=== PATIENT | female | born 2000 ===

== ENCOUNTER → 2023-07-03 | Outpatient (CLI) | payer OTHER | END | disposition home or self-care (01) | LOC: LAB 15:41 → LAB SHORT 15:41 | DX: Z34.83 Encounter for supervision of other normal pregnancy, third trimester (principal) | CPT/HCPCS: 87081; 87150 ==

== ENCOUNTER 2023-12-08 17:42 | Emergency (ER) | payer OTHER ==
[~2023-12-08] VITALS: Ht 165.1 cm; Wt 81.7 kg
[2023-12-08 18:04] VITALS: BP 127/84
[2023-12-08] MEDS ORDERED: CEPH500 PO (19:12)
[2023-12-08] MEDS ORDERED: Bactrim Ds Tab1 EACH PO (19:12)
[2023-12-08] MEDS ORDERED: Cephalexin Monohydrate 500 MG Cap PO ONE (19:15)
[2023-12-08] MEDS ORDERED: Trimethoprim/Sulfamethoxazole DS Tab PO ONE (19:15)
== END 2023-12-08 19:50 | disposition home or self-care (01) ==
LOC: ER 17:42
DX: L02.511 Cutaneous abscess of right hand (principal)
CPT/HCPCS: 81025; A9270

== ENCOUNTER → 2024-09-22 | Outpatient (CLI) | payer OTHER ==
[~2024-09-22] MED LIST: Bactrim Ds Tab1 EACH PO; CEPH500 PO
== END ==
LOC: LAB 18:32 → LAB SHORT 18:32
DX: O09.90 Supervision of high risk pregnancy, unspecified, unspecified trimester (principal)
CPT/HCPCS: 87081; 87150

== ENCOUNTER 2024-10-19 04:29 | Inpatient (IN) | payer OTHER ==
[2024-10-19] VITALS (70 sets, daily range): BP systolic 71–124; BP diastolic 48–84
[~2024-10-19] VITALS: Ht 165.1 cm; Wt 93.2 kg
[2024-10-19] MEDS ORDERED: Misoprostol 200 MCG Tab PR PRN ×2 (06:30→13:15)
[2024-10-19] MEDS ORDERED: Carboprost Tromethamine 250 MCG/ML 1ML Amp IM PRN ×2 (06:30→13:10)
[2024-10-19] MEDS ORDERED: Acetaminophen 500 MG Tab PO PRN ×2 (06:30→13:10)
[2024-10-19] MEDS ORDERED: Lactated Ringer's 1,000 ML IV PRN (06:30)
[2024-10-19] MEDS ORDERED: Lactated Ringer's 1,000 ML IV SCH ×4 (06:30→13:25)
[2024-10-19] MEDS ORDERED: OXYTOCIN/RINGER'S LACTATE 500 ML IV PRN (06:30)
[2024-10-19] MEDS ORDERED: Misoprostol 200 MCG Tab BC PRN (06:30)
[2024-10-19] MEDS ORDERED: Tranexamic Acid 100 ML IV SCH (06:30)
[2024-10-19] MEDS ORDERED: Penicillin G Potassium 5,000,000 UNITS in NS 250 ML IV ONE (06:30)
[2024-10-19] MEDS ORDERED: Ondansetron HCl 2 MG / ML 2ML Vial IV PRN ×4 (06:30→13:15)
[2024-10-19] MEDS ORDERED: FentaNYL 2mcg/ml-Bup 0.1% Epd 250 ML EPI PRN (06:30)
[2024-10-19] MEDS ORDERED: Methylergonovine Maleate 0.2MG / ML 1ML Amp IM PRN ×2 (06:30→13:20)
[2024-10-19] MEDS ORDERED: Oxytocin 10 Unit / ML Vial IM PRN (06:30)
[2024-10-19] MEDS ORDERED: FentaNYL Citrate 50 MCG/ML 2 ML Injection IV PRN ×2 (06:30→12:10)
[2024-10-19] MEDS ORDERED: ePHEDrine Sulfate 50 MG/ML 1ML Injection XX PRN (06:30)
[2024-10-19] MEDS ORDERED: Calcium Carbonate 500 MG Tab Chew PO PRN (06:35)
[2024-10-19] MEDS ORDERED: FentaNYL Citrate 50 MCG/ML 2 ML Injection ONE ×2 (06:42→12:24)
[2024-10-19 06:53] LABS: BASOPHILS ABSOLUTE AUTO 0.03 K/mm3 (0.00-0.23); BASOPHILS PERCENT AUTO 0 % (0-2); EOSINOPHILS ABSOLUTE AUTO 0.07 K/mm3 (0.00-0.68); EOSINOPHILS PERCENT AUTO 1 % (0-6); Hematocrit 33.4 % (33.0-51.0); Hemoglobin 10.6 g/dL (11.5-16.0); IMMATURE GRAN ABSOLUTE AUTO 0.12 K/mm3 (0.00-0.10); IMMATURE GRAN PERCENT AUTO 1 % (0-1); LYMPHOCYTES ABSOLUTE AUTO 1.93 K/mm3 (0.84-5.20); LYMPHOCYTES PERCENT AUTO 17 % (21-46); MONOCYTES ABSOLUTE AUTO 0.69 K/mm3 (0.16-1.47); MONOCYTES PERCENT AUTO 6 % (4-13); Mean Corpuscular HGB Conc 31.7 g/dL (31.5-36.5); Mean Corpuscular Volume 76 fL (80-100); Mean Platelet Volume 10.8 fL (9.1-12.4); NEUTROPHILS ABSOLUTE AUTO 8.84 K/mm3 (1.96-9.15); NEUTROPHILS PERCENT AUTO 76 % (41-73); Platelet Count 231 K/mm3 (150-400); RDW Coefficient Variation 14.6 % (11.7-14.2); RDW Standard Deviation 39.7 fL (35.1-46.3); Red Blood Cell Count 4.41 M/mm3 (3.80-5.20); White Blood Cell Count 11.68 K/mm3 (4.00-11.30)
[2024-10-19] MEDS ORDERED: Metoclopramide HCl 5MG / ML 2ML Vial IV PRN (07:20)
[2024-10-19] MEDS ORDERED: DiphenhydrAMINE HCl 50 MG/ML 1ML Vial IV PRN (07:20)
[2024-10-19] MEDS ORDERED: Penicillin G Potassium 2,500,000 UNITS in Dextrose 5% 100 ML IV SCH (10:30)
[2024-10-19] MEDS ORDERED: NS 1,000 ML IV SCH (11:00)
[2024-10-19] MEDS ORDERED: NS 1,000 ML IV ONE (11:28)
[2024-10-19] MEDS ORDERED: Metoclopramide HCl 5MG / ML 2ML Vial IV ONE ×2 (11:40→11:45)
[2024-10-19] MEDS ORDERED: CeFAZolin Sodium 2,000 MG in NS 100 ML IV SCH ×2 (11:40→11:45)
[2024-10-19] MEDS ORDERED: Citric Acid/Sodium Citrate 30 ML BTL PO ONE ×2 (11:40→11:45)
[2024-10-19] MEDS ORDERED: Azithromycin 500 MG in NS 250 ML IV SCH (11:45)
[2024-10-19] MEDS ORDERED: Oxytocin 10 Unit / ML Vial ONE (11:54)
[2024-10-19] MEDS ORDERED: Lidocaine HCl 2% 10 ML SDA ONE ×2 (11:54→11:55)
[2024-10-19] MEDS ORDERED: Dexamethasone Sod Phos 10 MG/ML 1ML VIAL ONE (11:58)
[2024-10-19] MEDS ORDERED: Ondansetron HCl 2 MG / ML 2ML Vial ONE (11:58)
[2024-10-19] MEDS ORDERED: Labetalol HCL 5 MG/ML 4ML Injection (Single Dose) IV PRN (12:10)
[2024-10-19] MEDS ORDERED: HYDROmorphone HCl/Pf 1MG SYR IV PRN (12:10)
[2024-10-19] MEDS ORDERED: Bupivacaine 0.5% HCl 5 MG/ML 30MLVIAL ONE ×2 (12:16→12:17)
[2024-10-19] MEDS ORDERED: Midazolam HCl 1MG / ML 2ML Vial ONE (12:24)
[2024-10-19 12:48] LABS: PCO2 Cord - Arterial 61.8 mmHg (40-50); PO2 Cord - Arterial < 14.0 mmHg (16-20); pH Cord - Arterial 7.28 (7.28-7.35)
[2024-10-19 12:49] LABS: PCO2 Cord - Venous 42.6 mmHg (40-50); pH Umbilical Cord - Venous 7.39 (7.26-7.35)
[2024-10-19] MEDS ORDERED: Ketorolac Tromethamine 30mg Vial ONE (12:53)
[2024-10-19] MEDS ORDERED: DiphenhydrAMINE HCL 25 MG Cap PO PRN (13:10)
[2024-10-19] MEDS ORDERED: OXYTOCIN/RINGER'S LACTATE 500 ML IV SCH ×2 (13:10→13:15)
[2024-10-19] MEDS ORDERED: OxyCODONE HCL 5 MG TAB PO PRN (13:10)
[2024-10-19] MEDS ORDERED: Lanolin Cream TOP PRN (13:15)
[2024-10-19] MEDS ORDERED: Morphine Sulfate 4 MG/1 ML Injection IV PRN (13:15)
[2024-10-19] MEDS ORDERED: Promethazine HCl 25 MG Tab PO PRN (13:15)
[2024-10-19] MEDS ORDERED: Magnesium Hydroxide Conc 10 ML UDC PO PRN (13:20)
[2024-10-19] MEDS ORDERED: Measles/Mumps/Rubella Vaccine 0.5 ML Vial SC ONE (13:20)
[2024-10-19] MEDS ORDERED: Metoclopramide HCl 10 MG Tab PO PRN (13:20)
[2024-10-19] MEDS ORDERED: Simethicone 80 MG Chew PO PRN (13:25)
[2024-10-19] MEDS ORDERED: Rho(D) Immune Globulin 300 MCG / SYR IM ONE ×2 (13:25→16:40)
--- NOTE | 2024-10-19 13:58 | NUR ---
pt to 130, on way from ob pacu to 130, pt got very nausea'd and white afte 1 minute in room less white and feeling better, less nausea
[2024-10-19] MEDS ORDERED: Ketorolac Tromethamine 30mg Vial IV SCH (14:00)
--- NOTE | 2024-10-19 14:09 | NUR ---
PT BP LOW ONCE INTO ROOM 130 FROM PACU. PT LIPS PALE AND SHE WAS FEELING NAUSEATED. LR BOLUS STARTED. BLEEDING WNL. PT GIVEN POPSICLE AND STARTING TO FEEL BETTER AT THIS TIME.
--- NOTE | 2024-10-19 14:45 | NUR ---
10/19/24 1445 SEGUNDO MEI VIABLE MALE BORN AT 1224. CORD GASES SENT WITH RT HUGH.
[2024-10-19] MEDS ORDERED: ePHEDrine Sulfate 50 MG/ML 1ML Injection IV PRN (14:50)
--- NOTE | 2024-10-19 14:54 | NUR ---
@ 1445, PT METAPHORE WAS SATURATED, RN USTILIZED PRESSURE DRESSING. HARRIETT MARTELL UPDATED ON DRESSING STATUS AND NEED TO PRESSUIZE IT. ORDER TO CONINUTE TO MONITOR @ PT JOSHUA KRISHNAN, HARRIETT MARTELL UPDATED, ORDERS FOR EPHEDRINE, SEE EMAR.
--- NOTE | 2024-10-19 15:22 | NUR ---
REPORT TO MARYJANE KWON FOR LUNCH BREAK WHILE PT WAS IN PACU. PT OUT OF PACU TO ROOM TAKEN BY MARYJANE KWON. REASSUMED CARE OF PT ONCE SHE ARRIVED IN ROOM. AT APPROX 1355.
[2024-10-19] MEDS ORDERED: Ibuprofen 400 MG Tab PO SCH (16:00)
[2024-10-19] MEDS ORDERED: Ibuprofen 400 MG Tab PO PRN (17:38)
[2024-10-19] MEDS ORDERED: Ketorolac Tromethamine 30mg Vial IV PRN (17:38)
[2024-10-19 18:26] LABS: BASOPHILS ABSOLUTE AUTO 0.02 K/mm3 (0.00-0.23); BASOPHILS PERCENT AUTO 0 % (0-2); EOSINOPHILS PERCENT AUTO 0 % (0-6); Hematocrit 28.5 % (33.0-51.0); Hemoglobin 8.9 g/dL (11.5-16.0); IMMATURE GRAN PERCENT AUTO 1 % (0-1); LYMPHOCYTES ABSOLUTE AUTO 0.56 K/mm3 (0.84-5.20); LYMPHOCYTES PERCENT AUTO 3 % (21-46); MONOCYTES ABSOLUTE AUTO 0.43 K/mm3 (0.16-1.47); MONOCYTES PERCENT AUTO 3 % (4-13); Mean Corpuscular HGB 24.1 pg (26.0-34.0); Mean Corpuscular HGB Conc 31.2 g/dL (31.5-36.5); Mean Corpuscular Volume 77 fL (80-100); Mean Platelet Volume 10.4 fL (9.1-12.4); NEUTROPHILS ABSOLUTE AUTO 15.43 K/mm3 (1.96-9.15); NEUTROPHILS PERCENT AUTO 93 % (41-73); Platelet Count 211 K/mm3 (150-400); RDW Coefficient Variation 14.6 % (11.7-14.2); RDW Standard Deviation 40.4 fL (35.1-46.3); White Blood Cell Count 16.54 K/mm3 (4.00-11.30)
[2024-10-19 18:48] LABS: International Normalized Ratio 0.92; Prothrombin Time Results 9.9 Sec (9.7-11.5)
[2024-10-19] MEDS ORDERED: Docusate Sodium 100 MG Cap PO SCH (21:00)
--- NOTE | 2024-10-19 23:03 | NUR ---
DRESSING REMOVED AFTER SHOWERING. WELL APPROXIMATED. WOUND CARE EDUCATION GIVEN. PT VERBILIZED UNDERSTANDING
[2024-10-20 05:14] VITALS: BP 102/55
[2024-10-20 06:53] LABS: BASOPHILS ABSOLUTE AUTO 0.02 K/mm3 (0.00-0.23); BASOPHILS PERCENT AUTO 0 % (0-2); EOSINOPHILS ABSOLUTE AUTO 0.02 K/mm3 (0.00-0.68); EOSINOPHILS PERCENT AUTO 0 % (0-6); Hematocrit 24.3 % (33.0-51.0); Hemoglobin 7.6 g/dL (11.5-16.0); IMMATURE GRAN PERCENT AUTO 1 % (0-1); LYMPHOCYTES ABSOLUTE AUTO 2.12 K/mm3 (0.84-5.20); LYMPHOCYTES PERCENT AUTO 14 % (21-46); MONOCYTES ABSOLUTE AUTO 1.21 K/mm3 (0.16-1.47); MONOCYTES PERCENT AUTO 8 % (4-13); Mean Corpuscular HGB 24.3 pg (26.0-34.0); Mean Corpuscular HGB Conc 31.3 g/dL (31.5-36.5); Mean Corpuscular Volume 78 fL (80-100); Mean Platelet Volume 10.5 fL (9.1-12.4); NEUTROPHILS ABSOLUTE AUTO 11.74 K/mm3 (1.96-9.15); NEUTROPHILS PERCENT AUTO 77 % (41-73); Platelet Count 207 K/mm3 (150-400); RDW Coefficient Variation 14.6 % (11.7-14.2); RDW Standard Deviation 40.9 fL (35.1-46.3); Red Blood Cell Count 3.13 M/mm3 (3.80-5.20); White Blood Cell Count 15.21 K/mm3 (4.00-11.30)
[2024-10-20 08:25] VITALS: BP 92/45
[2024-10-20] MEDS ORDERED: Sod Ferric Gluc Complx/Sucrose 125 MG in NS 100 ML IV SCH (09:00)
[2024-10-20] MEDS ORDERED: Prenatal Vit/FE Fumarate/FA 1 Tab PO SCH (09:00)
[2024-10-20 12:02] VITALS: BP 96/55
[2024-10-20] MEDS ORDERED: FentaNYL Citrate 50 MCG/ML 2 ML Injection IV PRN (13:45)
[2024-10-20 16:03] VITALS: BP 108/68
--- NOTE | 2024-10-20 18:41 | NUR ---
RN INTO ROOM. PT TEARFUL ON PHONE WITH FOB. RN ASKED IF PT'S PAIN WAS BETTER TO WHICH SHE SAID IT WAS ABOUT THE SAME. RN OFFERED KPAD, PT AGREED. WHEN RN BACK INTO ROOM TO SET UP KPAD, PT CONTINUED TO BE TEARFUL. WHEN ASKED WHAT WAS UPSETTING PT, SHE EXPLAINED THAT "I JUST WANT TO GO HOME, I DIDN'T WANT ANY OF THIS." RN OFFERED SUPPORT WITH WATCHING NB FOR PT TO NAP; PT DECLINED. RN SUGGESTED PT ASK A FRIEND, FAMILY MEMBER, OR FOB TO HOLD BABY WHILE SHE SLEPT. RN ALSO EXPLAINED THAT [facility] USUALLY STAY IN HOSPITAL X48 HOURS, BUT IF SHE THOUGHT SHE COULD MANAGE HER PAIN AT HOME, PROVIDER MAY OKAY HER GOING HOME TONIGHT. RN ALSO MENTIONED THAT THERE ARE PROS AND CONS BOTH WITH STAYING OR GOING, AND THAT IF SHE STAYED WE COULD OFFER ADDITIONAL SUPPORT TO PROVIDE REST. PT STATES SHE IS NOT SURE WHAT SHE WANTS AT THIS TIME. RN ASKED PT IF SHE WOULD LIKE TO BE LEFT ALONE TO TALK ON PHONE OR IF SHE WOULD LIKE RN TO STAY FOR SUPPORT, SHE STATED THAT SHE WAS FINE TO BE ALONE.
[2024-10-20 19:56] VITALS: BP 83/47; BP 88/42
[2024-10-20 22:04] VITALS: BP 94/56
[2024-10-21 00:03] VITALS: BP 95/58
[2024-10-21 03:02] VITALS: BP 94/55
[2024-10-21 08:00] VITALS: BP 102/58
[2024-10-21 12:10] VITALS: BP 102/56
[2024-10-21 16:41] LABS: FETAL HGB - PERCENT FETAL RBCS 0.001 % (0.000-0.124)
== END 2024-10-21 12:35 | disposition home or self-care (01) | DRG 783 ==
LOC: BC 04:29 → OBS 04:29 → BC 04:30 → OBS 06:31 → BC 06:33
PROVIDERS: Family Medicine; Obstetrics & Gynecology; ADMIT Advanced Practice Midwife
PROC: 4A1H7CZ Monitoring of Products of Conception, Cardiac Rate, Via Natural or Artificial Opening (ICD-10-PCS; 2024-10-19)
PROC: 10H073Z Insertion of Monitoring Electrode into Products of Conception, Via Natural or Artificial Opening (ICD-10-PCS; 2024-10-19)
PROC: 10907ZC Drainage of Amniotic Fluid, Therapeutic from Products of Conception, Via Natural or Artificial Opening (ICD-10-PCS; 2024-10-19)
PROC: 10D00Z1 Extraction of Products of Conception, Low, Open Approach (ICD-10-PCS; principal; 2024-10-19 16:30)
PROC: 0UB70ZZ Excision of Bilateral Fallopian Tubes, Open Approach (ICD-10-PCS; 2024-10-19 16:30)
DX: O48.0 Post-term pregnancy (principal); O99.42 Diseases of the circulatory system complicating childbirth; F31.81 Bipolar II disorder; O99.324 Drug use complicating childbirth; D62 Acute posthemorrhagic anemia; I95.2 Hypotension due to drugs; Z37.0 Single live birth; Z3A.40 40 weeks gestation of pregnancy; O77.0 Labor and delivery complicated by meconium in amniotic fluid; O76 Abnormality in fetal heart rate and rhythm complicating labor and delivery; O90.81 Anemia of the puerperium; R01.1 Cardiac murmur, unspecified; O69.81X0 Labor and delivery complicated by cord around neck, without compression, not applicable or unspecified; O99.344 Other mental disorders complicating childbirth; F41.9 Anxiety disorder, unspecified; O99.284 Endocrine, nutritional and metabolic diseases complicating childbirth; E05.90 Thyrotoxicosis, unspecified without thyrotoxic crisis or storm; O99.824 Streptococcus B carrier state complicating childbirth; O99.334 Smoking (tobacco) complicating childbirth; F17.290 Nicotine dependence, other tobacco product, uncomplicated; F12.90 Cannabis use, unspecified, uncomplicated; Z71.6 Tobacco abuse counseling; Z71.51 Drug abuse counseling and surveillance of drug abuser
CPT/HCPCS: 36415; 51702; 59025; 59070; 81003; 82803; 85025; 85384; 85460; 85610; 85730; 86356; 86850; 86900; 86901; 86923; 88302; 99214; A9270; J0690; J1100; J1885; J2003; J2250; J2405; J2540; J2590; J2765; J2791; J2916; J3010; J7030; J7050; J7120